=== PATIENT | male | born 1945 | race Caucasian/White ===

== ENCOUNTER 2016-07-14 23:43 | Inpatient (IN) | payer MEDICARE, BC ==
--- NOTE | ~2016-07-14 | HP ---
Unit #: [id number] #: [id number] Patient: FREDO GARDINER [id number] [place] [address] [id number] MR#: [id number] NAME: FREDO GARDINER ROOM: P256 Age: 71 Sex: M Admission Date: 07/14/2016 : 1945 Attending Physician: Anders Barbour M.D. Admitting Physician: Anders Barbour M.D. Primary Care Physician: Primary Care Physician No HISTORY AND PHYSICAL HISTORY OF PRESENT ILLNESS Fredo is a 71-year-old gentleman admitted to [address] [place] [address] with depression and wanting to hurt himself. PAST MEDICAL HISTORY 1. Coronary artery disease. 2. Diabetes mellitus. 3. Hyperlipidemia. 4. History of atrial fib. a. Chronic anticoagulation. 5. History of anemia. 6. History of congestive heart failure. PAST SURGICAL HISTORY Pacemaker placed. ALLERGIES No known drug allergies. SOCIAL HISTORY Smokes one pack per day. Denies alcohol. Illicit drug use. FAMILY HISTORY Medically noncontributory. REVIEW OF SYSTEMS CONSTITUTIONAL: No fever or chills. HEENT: Denies any sore throat, ear pain or runny nose. CARDIOVASCULAR: Denies chest pain, irregular heart rhythm or palpitations. CHEST: Denies shortness of breath or cough. No hemoptysis. GASTROINTESTINAL: Denies nausea, vomiting, diarrhea or chronic constipation. ENDOCRINE: Denies history of increased thirst or urination. No recent significant weight loss or gain. GENITOURINARY: Denies dysuria, frequency, or hematuria. SKIN: Denies any rashes. HEMATOLOGIC: Denies history of increased bleeding or bruising. MUSCULOSKELETAL: Denies any hot, swollen joints. No generalized muscle pain. NEUROLOGIC: Denies problems with vision or speech. No frequent, severe headaches. No numbness, tingling or weakness in any extremities. Denies loss of bladder or bowel control. Unit #: [id number] #: [id number] Patient: FREDO GARDINER CURRENT MEDICATIONS 1. Fish oil 1000 mg q. day. 2. Lipitor 80 mg q. day. 3. Methadone 10 mg b.i.d. 4. Glucophage 500 mg b.i.d. 5. Coumadin 3 mg q. day. 6. Lasix 40 mg q. day. 7. Aspirin 81 mg q. day. 8. Lopressor 25 mg b.i.d. 9. Ferrous gluconate 324 mg b.i.d. 10. KCl 20 mEq b.i.d. 11. Zoloft 150 mg q. day. 12. Neurontin 800 mg t.i.d. PHYSICAL EXAMINATION GENERAL: Alert, elderly gentleman. No apparent distress. VITAL SIGNS: Blood pressure 132/72, heart rate 78, respirations 16, and temperature 98.6. WEIGHT: 154. HEIGHT: 5 feet 8 inches. SKIN: Warm and dry without rash or lesion. HEENT: Normocephalic. TMs not viewed. Oral and nasal passages clear. Conjunctivae clear. PERRLA. EOMs intact. NECK: Supple without lymphadenopathy or thyromegaly. HEART: Regular rate and rhythm without murmur. CHEST: Clear. Pacemaker noted along the left anterior chest wall. ABDOMEN: Soft, nontender. : Not done. EXTREMITIES: No evidence of cyanosis, clubbing or edema. Moves all without focal deficit. NEUROLOGICAL: Grossly within normal limits. Cranial Nerves: II: Visual mahmood are intact. III, IV AND : Extraocular movements are intact. Pupils are equal, round and reactive to light. V: Facial sensation is grossly normal. VII: Facial movements and expression are normal. VIII: Auditory acuity grossly intact. IX, X: Uvula is midline. Phonation is normal. XI: Patient shrugs shoulders and turns head normally. XII: Tongue protrudes in the midline. Sensory and Motor Function: Sensory and motor sensation is grossly normal. Motor: moves all extremities well. Coordination: Gait is normal. Deep Tendon Reflexes: Intact. IMPRESSION Psychiatric admission. RECOMMENDATIONS PSYCHIATRIC: Per psychiatrist. MEDICAL: 1. I see no contraindication to participate in this facility's activities. 2. Continue Lipitor, Glucophage, Coumadin, Lasix, Aspirin, Lopressor, ferrous gluconate, KCl. Check a PT/INR, BMP, and CBC. MEDICAL PROGNOSIS Good. MEDICAL CONDITION Unit #: [id number] #: [id number] Patient: FREDO GARDINER Stable. Dictated by... Shayla Llanos P.A.-C. for Jair Mc M.D. ADEBAYO/brad TD: 07/16/2016 06:57 JOB #: [id number] HISTORY AND PHYSICAL Page 1 of 1 X Shayla Llanos HISTORY AND PHYSICAL
--- NOTE | ~2016-07-14 | CO ---
Unit #: [id number] #: [id number] Patient: FREDO GARDINER [id number] [place] [address] [id number] MR#: [id number] NAME: FREDO GARDINER ROOM: P256 Age: 71 Sex: M Admission Date: 07/14/2016 : 1945 Attending Physician: Anders Barbour M.D. Primary Care Physician: Primary Care Physician No Consultation Date: 07/15/2016 CONSULTATION REPORT HERLINDA Morales is a 71-year-old gentleman with history of atrial fib and on chronic anticoagulation therapy. Home medication includes Coumadin 3 mg a day. We will check PT/INR in the a.m. The results will be called to me and we will can continue Coumadin as indicated. Dictated by... Shayla Llanos P.A.-C. for Juan F Lofton/garcia TD: 07/15/2016 23:49 JOB #: [id number] CONSULTATION REPORT Page 1 of 1 X Shayla Llanos CONSULTATION REPORT
--- NOTE | ~2016-07-14 | A ---
[facility] Nutrition Therapy DATE: 07/15/16 Patient: FREDO GARDINER Physician: PAYTON Address: [address] [place] [address] Room/Bed: [address], Zip: [place] [address] Admit Date: 07/14/16 Date of : [birth year] Height: 5 8 Weight: [phone] NUTRITIONAL ASSESSMENT: REASON: NUTRITIONAL RISK POINT- UNINTENTIONAL WEIGHT LOSS PATIENT ADMITTED FOR DEPRESSION AND SI PMH: DM, HTN, GERD, ASTHMA Anthropometrics: HT: 5'8", WT: 154#, BMI: 23.4, %IBW: 23.4 Labs: 07/15/16- GLU: 90 (WNL), CREA: 0.5, ALB: 3.3 Meds: METHADONE HCL, COUMADIN, FUROSEMIDE, FISH OIL, FERROUS GLUCONATE, KLOR-CON, ZOLOFT, NEURONTIN, DESYREL, VITAMIN D Assessment: PATIENT IS A 71 Y/O MALE ADMITTED FOR SI AND DEPRESSION. PATIENT IS RETIRED, RECEIVES SSI, LIVES WITH SON, SMOKES 1 PPD, AND DENIES SUBSTANCE ABUSE. PATIENT'S SPOUSE LEFT HIM 5 MONTHS AGO AFTER 15 YEARS OF MARRIAGE. PATIENT STATED A FAIR APPETITE WITH NO RECENT WEIGHT CHANGES. HIS BMI IS WITHIN A HEALTHY RANGE AND HE IS 100% OF HIS IBW. FUROSEMIDE AND PSYCH MEDS MAY CAUSE WEIGHT FLUCTUATIONS. PATIENT IS ON A CC DIET. Dx: NO NUTRITION DX Intervention: REGULAR DIET, MEDS PER MD, PSYCH Monitoring, Evaluation and Goals: 1. ADEQUATE PO INTAKES >50% OF MEALS 2. PREVENT, CORRECT MICRO/MACRO NUTRIENT DEFICIENCIES MONITOR: WEIGHTS, LABS, PO/FLUID INTAKES Recommendations: 1. CONTINUE CC DIET TOLERATED 2. ENCOURAGE ADEQUATE PO AND FLUID INTAKES RD TO F/U PER PROTOCOL AND PRN R/T PATIENT NOT AT NUTRITIONAL RISK ATT Respectfully, [facility] Nutrition Therapy DATE: 07/15/16 Patient: FREDO GARDINER Physician: PAYTON Address: [address] [place] [address] Room/Bed: [address], Zip: [place] [address] Admit Date: 07/14/16 Date of : [birth year] Height: 5 8 Weight: [phone], LD [facility] cc: client file
--- NOTE | ~2016-07-14 | DS ---
Unit #: [id number] #: [id number] Patient: FREDO GARDINER [id number] [facility] [address] [place] [address] [id number] I MR#: [id number] NAME: FREDO GARDINER ROOM: P256 Age: 71 Sex: M Admission Date: 07/14/2016 : 1945 Discharge Date: 07/17/2016 Attending Physician: Anders Barbour M.D. Primary Care Physician: Primary Care Physician No DISCHARGE SUMMARY REASON FOR ADMISSION Suicidal ideations with plans to kill himself with a knife. DIAGNOSTIC STUDIES PERTINENT LABORATORY DATA: Included routine blood work with a CMP that showed a creatinine of 0.5, CO2 of 32, albumin of 3.3, otherwise within normal parameters. PT elevated at 21.1, but I expect to considering he is on warfarin, INR of 2.0. CBC was within normal parameters with the exception of platelet count slightly low at 114. Apparently urinalysis was attempted but never collected. HOSPITAL COURSE The patient was admitted for safety and stabilization for ongoing issues with significant depression with suicidal ideations with plan to cut his own throat with a knife or his wrist. The patient apparently has been having ongoing marital discord for the last several months for which his suddenly moved out after 50+ years of being . Apparently he had a conversation with her over the previous weekend in which she continued to refuse to talk to him about why she left and told him never to talk to her again, etc. That set the patient into a spiral. The patient then started becoming acutely worse in his depression that had already been going on for several months being treated by his primary care doctor with moderate benefit at best. The patient beginning to have suicidal ideation. He told the son with whom he lives, and he brought him to the hospital, and hence he was admitted. The patient was maintained on his entire home medication list with the Zoloft being increased to 150 mg daily. The patient was admitted on a 72-hour hold because of some desire to leave. That was done at the [facility] Emergency Room before he was even admitted to [facility] and was maintained. Overall during the course of hospitalization, the patient improved. He went from being extremely tearful and morose to much brighter, appropriate, no tearfulness, goal-oriented, denying any SI or HI at the time of discharge. He seems fairly isolative the first couple of days in the hospital and slowly began to become more interactive with groups and activities, and overall showed good progress. At the time of discharge, he was denying any acute mood issues. He was much more focused on getting proper treatment, therapy for his situation, and certainly "not dealing with my until she is ready." Overall, the patient has a good safety plan to call the family, was tolerating the change in the Zoloft at 150 without complications or side effects and was ready for discharge home with community followup per social worker school. The patient was in agreement with the plan. DISCHARGE DIAGNOSES Unit #: [id number] #: [id number] Patient: FREDO GARDINER 1. Major depressive disorder, recurrent, severe, without psychotic features. 2. Hypertension. 3. Diabetes. 4. Hyperlipidemia. 5. Chronic pain with history of surgeries specifically back. DISCHARGE INSTRUCTIONS For the patient to go home with family, with followup care through community psychiatric resources to be determined by manager social. DISCHARGE MEDICATIONS 1. Fish oil 1000 mg daily for cardiovascular disease. 2. Lipitor 80 mg at bedtime for hyperlipidemia. 3. Methadone 2 mg twice a day for chronic pain issues. 4. Glucophage 500 mg twice a day for diabetes. 5. Coumadin 3 mg everyday at 1600 hours for cardiac prophylaxis and anticoagulant treatment. 6. Furosemide 20 mg daily for hypertension treatment. 7. Aspirin 81 mg daily for cardiac disease prophylaxis. 8. Lopressor 25 mg twice a day for hypertension treatment. 9. Ferrous gluconate 325 mg twice a day by mouth for chronic iron deficiency. 10. Klor-Con 20 mEq twice a day for Lasix prophylaxis. 11. Zoloft 150 mg daily by mouth for antidepressant treatment. 12. Neurontin 800 mg 3 times a day for chronic pain issues. 13. Lipitor 80 mg daily for hyperlipidemia. No other medications noted at this time. Only prescription given was resolved. CONDITION AT DISCHARGE Improving. PROGNOSIS Fair. DIET No concentrated sweet, unhealthy. ACTIVITY As tolerated with compliance encouraged. Dictated by... Anders Barbour M.D. Sunny TD: 07/17/2016 09:27 JOB #: [id number] Unit #: [id number] #: [id number] Patient: FREDO GARDINER DISCHARGE SUMMARY Page 1 of 1 X Anders Barbour MD DISCHARGE SUMMARY
--- NOTE | ~2016-07-14 | PN ---
Unit #: [id number] #: [id number] Patient: FREDO GARDINER [id number] [place] [address] [id number] MR#: [id number] NAME: FREDO GARDINER ROOM: P256 Age: 71 Sex: M Admission Date: 07/14/2016 : 1945 Attending Physician: Anders Barbour M.D. Admitting Physician: Anders Barbour M.D. Primary Care Physician: Primary Care Physician [facility] PROGRESS NOTES DATE OF SERVICE: 07/16/2016 LOCATION [facility], [address] [place] [address], [address], bed #1. SUBJECTIVE This is a 71-year-old white male who is here with ongoing issues of major depressive disorder as well as suicidal thoughts. The patient was seen in his room when he apparently is isolative most of the day. According to the staff, he has done some socialization and ambulation, but fairly much stays to himself. The patient reports feeling better today and that he slept well the night before. He was less tearful today and reports trying to work no more positive. Thought process in terms of dealing with his much less tearful now than he was yesterday since he reports to be tolerating his med changes well. No overt side effects discussed. Need for additional increase with outpatient care upon his discharge which he was agreeable. MENTAL STATUS EXAMINATION General appearance; this is a moderately groomed white male, fairly pleasant, cooperative, and responsive during the interview process with improved eye contact today, less tearful. Speech was clear and coherent. Mood was "better," less depressed, and less labile affect. Thought process and content are grossly organized and linear. No overt evidence of psychosis. No HI at this time. SI is resolving. The patient's memory was grossly intact. Associations were normal. Cognitive function was at baseline. Alert and oriented x4. Insight and judgment are improving. RECOMMENDATIONS We will continue the patient's admission for safety and stabilization for ongoing issues with depression and SI, both of which are improving and we will continue to monitor to make sure that it will be maintained as discussed with the staff, but the need for director of social services to look into additional outpatient care for this individual when he is discharged home. Disposition plan is ongoing at this time. Dictated by... Juan F Morelos/garcia Unit #: [id number] #: [id number] Patient: FREDO GARDINER TD: 07/16/2016 14:11 JOB #: [id number] [facility] PROGRESS NOTES Page 1 of 1 X Anders Barbour MD PROGRESS NOTE
--- NOTE | ~2016-07-14 | PA ---
Unit #: [id number] #: [id number] Patient: [facility]ED[facility]ARDINER [id number] [facility] [address] [place] [address] [id number] I MR#: [id number] NAME: FREDO GARDINER ROOM: P256 Age: 71 Sex: M Admission Date: 07/14/2016 : 1945 Date of Assessment: 07/15/2016 Attending Physician: Anders Barbour M.D. Admitting Physician: Anders Barbour M.D. Primary Care Physician: Primary Care Physician No PSYCHIATRIC ASSESSMENT LOCATION Our [address], room #256, bed #1. DATE OF SERVICE 07/15/2016. INFORMANTS The patient and chart, both seemed reliable. CHIEF COMPLAINT "She left me, I don't know what else to do." HISTORY OF PRESENT ILLNESS This is a 71-year-old white male admitted to [facility] after being evaluated in [facility]'s ER for issues with suicidal ideation with plan to cut his own throat and/or wrist with a knife. The patient was left by his , he reports of over 50 years, last January for no clear reason and then apparently he has been suffering depression since then, although significant nature compounded by recent conversation he had 3 days ago with her on the phone, in which she continues to refuse to give any reasons for her leaving and told him that she would never be back ever. Apparently, she is living with their one other son in [place] while he is staying with another son here in [place], [place]. Overall, the patient was very tearful, depressed, hopeless, continuing to voice intermittent SI, but denies any plan today. The patient slept well last night per staff. Staff is currently in the process of confirming his medications with his pharmacy as he is unable to do so at this time given the shear volume. He denies any significant history of psychiatric care before now, but there is some concern this may not be accurate as the chart indicates he saw Dr. Cao in the distant past, but beyond that, he denies any inpatient psychiatric care, no history of suicidal ideation or any history of actions whatsoever before now. The patient denies any issues with drugs or alcohol at this time. PAST PSYCHIATRIC HISTORY As noted above. No current outpatient provider. Be on medication from primary care doctor. No history of inpatient or over outpatient care, however, it was unclear of this report. No history of HI or any psychosis previously. FAMILY HISTORY Significant for significant other who was being treated for mood disorder suspectedly. Unit #: [id number] #: [id number] Patient: FREDO GARDINER SOCIAL HISTORY As noted above. The patient currently , has support through his son. He lives here in that son's family. Unclear ongoing marital status. MEDICAL HISTORY Significant for hypertension, hyperlipidemia, chronic pain, recent history of back surgery, and diabetes. MEDICATION HISTORY Being confirmed through the patient's outpatient pharmacy now, but did include Zoloft 100 mg as an antidepressant. Remaining medications are being confirmed currently. ALLERGIES Include no known allergies. SUBSTANCE ABUSE HISTORY The patient denied any and all. MENTAL STATUS EXAMINATION General appearance; this is a limited groomed white male, fairly cooperative, responsive to the interview process, good eye contact, possible for tearfulness, mild psychomotor agitation. Speech was clear and coherent. No prosody. Mood was depressed with a congruent if not labile affect. Thought process and content are grossly organized and linear. No overt evidence of psychosis. The patient still continues to voice positive SI, but no plan today and no HI. The patient's memory was grossly intact. Associations were normal. Cognitive function was at baseline. Alert and oriented x4. Insight and judgment are limited. ASSETS AND LIABILITIES Assets include support through existing family here and outpatient provider who his primary care doctor. Liabilities include ongoing marital strife, worsening depression, and chronic comorbid medical problems. ADMITTING DIAGNOSES 1. Major depressive disorder, recurrent, severe, without psychotic features. 2. Hypertension. 3. Hyperlipidemia. 4. Diabetes. 5. Chronic pain, history of back surgeries. PSYCHIATRIC PLAN We will have to continue the patient's admission for safety and stabilization for ongoing issues with depression and active SI. The patient is on a 72-hour hold and we will continue for such at this time. We will increase Zoloft to 150 mg to better help with mood stabilization and allow respite time for the patient to cope with the situation in a more controlled environment. We will restart the patient's home medications as soon as can be confirmed through his pharmacy. The patient has a medical records secretary to make sure that was the appropriate doses and there are no acute issues. Multiple labs pending. Treatment goals will be resolution of symptoms in a safe controlled environment with discharge planning most likely requiring community resources and the patient's home area. Unit #: [id number] #: [id number] Patient: FREDO GARDINER ESTIMATED LENGTH OF STAY Approximately 3 to 5 days depending on the patient's progress and response to treatment. Dictated by... Juan F Morelos/garcia TD: 07/15/2016 23:11 JOB #: [id number] PSYCHIATRIC ASSESSMENT Page 1 of 1 X Anders Barbour MD X PSYCHIATRIC ASSESSMENT
[2016-07-15 09:42] LABS: BASOPHIL# 0.1 X10e3 (0-0.3); BASOPHIL% 1.2 % (0-2.5); EOSINOPHIL# 0.1 X10e3 (0-0.7); EOSINOPHIL% 1.7 % (0.0-7.0); HEMATOCRIT 41.7 % (38.0-50.0); HEMOGLOBIN 13.9 gm/dL (13.0-16.0); LYMPHOCYTE# 1.4 X10e3 (1.0-3.5); LYMPHOCYTE% 27.7 % (17.0-45.0); MEAN CELL VOLUME 92.8 FL (83-96); MEAN CORPUSCULAR HGB CONC 33.4 g/dL (30-36); MEAN PLATELET VOLUME 9.6 FL (6.5-11.5); MONOCYTE# 0.5 X10e3 (0-1.0); NEUTROPHIL# 3.1 X10e3 (1.5-7.1); NEUTROPHIL% 59.4 % (40-75); PLATELET COUNT 114 X10e3 (140-420); RED CELL DISTRIBUTION WIDTH 14.5 % (11.0-15.5); WHITE BLOOD COUNT 5.1 X10e3 (4.0-10.5)
[2016-07-15 09:46] LABS: DIFF IND NO
[2016-07-15 09:52] LABS: ALBUMIN SERUM 3.3 g/dL (3.5-5.0); BILIRUBIN,TOTAL 1.2 mg/dL (0.2-2.0); CREATININE SERUM 0.5 mg/dL (0.6-1.4); GLOM FILT RATE Estimated 108.3 mL/min (>60); POTASSIUM 3.9 mmol/L (3.5-5.1)
[2016-07-16 09:44] LABS: PROTHROMBIN TIME (PATIENT) 21.2 SECONDS (9.6-11.5)
[2016-07-17 09:40] LABS: URINE APPEARANCE CLEAR; URINE BILIRUBIN NEG (NEG); URINE BLOOD NEG (NEG); URINE COLOR YELLOW; URINE GLUCOSE NEG (NEG); URINE KETONE NEG (NEG); URINE LEUKOCYTE ESTERASE NEG (NEG); URINE NITRATE NEG (NEG); URINE PROTEIN NEG (NEG); URINE SPECIFIC GRAVITY 1.011 (1.003-1.035); URINE UROBILINOGEN 0.2 MG/DL (NEG)
[2016-07-17 09:50] LABS: AMPHETAMINE NEG (NEG); BARBITURATES NEG (NEG); BENZODIAZEPINES NEG (NEG); COCAINE NEG (NEG); MARIJUANA NEG (NEG); OPIATES NEG (NEG); TRICYCLIC ANTIDEPRESSANTS NEG (NEG); U METHADONE POS (NEG)
== END 2016-07-17 15:20 | disposition home or self-care (01) | DRG 885 ==
LOC: P2L 23:43 → POF 07-15 03:29 → P2L 07-15 03:30
PROVIDERS: Psychiatry & Neurology Psychiatry
DX: F33.2 Major depressive disorder, recurrent severe without psychotic features (principal); I48.2 Chronic atrial fibrillation; R45.851 Suicidal ideations; E11.9 Type 2 diabetes mellitus without complications; I10 Essential (primary) hypertension; E78.5 Hyperlipidemia, unspecified; G89.29 Other chronic pain; M54.9 Dorsalgia, unspecified; Z95.0 Presence of cardiac pacemaker; Z79.01 Long term (current) use of anticoagulants; Z79.84 Long term (current) use of oral hypoglycemic drugs
CPT/HCPCS: 80053; 80307; 81003; 82947; 85025; 85610